=== PATIENT | female | born 1980 | race Two or more races ===

== ENCOUNTER 2025-03-03 10:50 | Outpatient (AMB) | payer MEDICAID, SELFPAY ==
[2025-03-03 11:08] VITALS: BP 134/93; PULSE 71; RESP 17; TEMP 36.6; O2SAT 96; BMI 30.7
--- NOTE | 2025-03-03 11:08 | AMB.OBINITIA ---
Vital Signs 03/03/25 11:08 Height 1.52 m Height Method Measured Weight 71.271 kg Weight Measurement Method Standing Scale BMI 30.7 BP 134/93 H Blood Pressure Source Automatic Cuff Blood Pressure Location Right Upper Arm Position Sitting Respiration 17 Pulse 71 Pulse Source Monitor Temp 97.8 F Temp Source Temporal Artery Scan Pulse Oximetry (%) 96 Oxygen Delivery Method Room Air Allergies/Home Meds Allergies & Medications Allergies No Known Allergies Allergy (Verified 03/03/25 11:09) Intake Visit Data Collection New Patient or Established: Established Patient (seen at [facility] within 3 years) Reason for Visit:: OBI Consent obtained for Telemed Visit: No Seen by Clinical Staff ONLY (RN/MA): No Retread Operator Required: No Do You Feel Safe at Home: Yes Authorities Contacted: N/A PCP or OBGYN visit in last 3 months: No Hx Now: Yes Are you currently on any form of Control: No Last menstrual period: 12/25/24 Pain Present Currently: No Pain Scale Used: Calvillo-Jennings/Numerical Pain scale:: 0 Smoking Status Smoking Status: Never smoker Questionnaires Covid-19 Vaccine Questionnaire Has patient been vacinated for Covid-19 Have you been vacinated for Covid-19: No PHQ-9 PHQ-2 Over the last 2 weeks, how often have you been bothered by any of the following problems? 1. Little interest or pleasure in doing things: not at all 2. Feeling down, depressed, or hopeless: not at all Total score: 0 PHQ-9 3. Trouble falling or staying asleep, or sleeping too much: Not at all 4. Feeling tired or having little energy: Not at all 5. Poor appetite or overeating: Not at all 6. Feeling bad about yourself - or that you are a failure or have let yourself or your family down: Not at all 7. Trouble concentrating on things, such as reading the newspaper or watching television: Not at all 8. Moving or speaking so slowly that other people could have noticed? - Or the opposite - being so fidgety or restless that you have been moving around a lot more than usual: not at all 9. Thoughts that you would be better off or of hurting yourself in some way: Not at all Total score: 0 If you checked off any problems, how difficult have these problems made it for you to do your work, take care of things at home, or get along with other people?: not difficult at all Source: Developed by Drs. Samir Jimenes, Trena Lowe, Francis Jones and colleagues, with an educational jatinder from [employer]. Social History Living Situation History Housing: House Tobacco History Smoking Status: Never smoker Alcohol History Alcohol Intake: Never Domestic Abuse History Do You Feel Safe at Home: Yes History of Present Illness HPI Narrative 44 yo for OBI. happy with + preg test and . unplanned. no bleeding or s/s of miscarriage. lmp 12/25/24. EDC 10/03/24. sure dates. no PMH,no social habit. no surgery. HX of gestational hypertention last . patient and spouse are with this [employer]: Past Medical History Past Medical History: No Hx Neurological Disorders, No Hx Cardiac Disorders, No Hx Cancer, No Hx Blood Disorders, Yes Hx Anemia (Iron infusion weekly for 6wks), No Hx Gastrointestinal Disorders, No Hx Renal Disease, No Hx Diabetes Mellitus Type 1 and No Hx Diabetes Mellitus Type 2 OB Initial Visit OB Flowsheet OB Flowsheet Initial Weight: Not Recorded Date <del>?</del> EGA Weight BP Alb Glu CTX Pres Fundal ht FHR Mov Dilation Station Effacement Hx Notes Visit Note 03/03/25 <del>?</del> 9w 5d 71.271 kg 134/93 absent unknown 6 0 absent 44-year-old 8 para 5 for OBI. Patient has an unplanned . Her last period December 25, 2024. Estimated due date October 03, 2025. Patient denies any complaints of nausea and vomiting. She denies any bleeding leaking or cramping. She has had 2 prior SABs. Reports sure dates. Her last period December 25, 2024 and this would give a due date of October 03, 2025. review chart and dates. OFFice sono /vag probe by Dr Lewis, shows pole, no cardiac motion. Today OB sono ordered at [facility], OB panel and HCG x2 were ordered at [facility]. discuss sab precaution. and ER precaution, rtc 1 week with OB for f/u Menstrual History Menstrual reliability: approximate (month known) Flow: normal Menstrual regularity: irregular Monthly: No Age at menarche: 16 On control pills at conception: Yes Date of positive home test: 01/31/25 OB History : 8 Para: 5 Hx # Pregnancies: 0 Hx Total # of Abortions (Spontaneous & Elective): 2 # of Living Children: 5 Delivery History 1st : Child's name: SUNI date: 10/19/99 sex: female Gestational age at delivery (weeks): 40 Delivery type: vaginal weight (lbs): 2721.554 g History of depression before or after : No 2nd : Child's name: RISHI date: 10/26/01 sex: female Gestational age at delivery (weeks): 40 Delivery type: vaginal weight (lbs): 2721.554 g History of depression before or after : No 3rd : Child's name: ABBY date: 10/05/05 sex: female Gestational age at delivery (weeks): 40 Delivery type: vaginal weight (lbs): 2721.554 g History of depression before or after : No 4th : Child's name: ALEE date: 05/12/11 sex: female Gestational age at delivery (weeks): 40 Delivery type: vaginal weight (lbs): 2721.554 g History of depression before or after : No 5th : Child's name: JORDAN date: 11/18/18 sex: female Gestational age at delivery (weeks): 40 Delivery type: vaginal weight (lbs): 3175.147 g History of depression before or after : No Infection History & Risk Evaluation History of STDs: none HIV risk evaluation: low risk Hepatitis B risk evaluation: low risk Patient or partner has history of Genital Herpes: No Genetic Screening & History Genetic Screening/Teratology Counseling - Includes patient, baby's father, or anyone in either family with: 1. Patient's age 35 years or older as of estimated date of delivery: Yes 2. Thalassemia (Slovenian, Ukrainian, Mediterranean, or Background); MCV less than 80: No 3. Neural Tube Defect (Meningomyelocele, Spina Bifida, or Anencephaly): No 4. Congenital Heart Defect: No 5. Down Syndrome: No 6. Ron-Sachs (Ashkenazi Episcopalian, Cajun, Irish [place]): No 7. Nathalie Disease (Ashkenazi Episcopalian): No 8. Familial Dysautonomia (Ashkenazi Episcopalian): No 9. Sickle Cell Disease or Trait (): No 10. Hemophilia or other blood disorders: No 11. Muscular Dystrophy: No 12. Cystic Fibrosis: No 13. [place]'s Chorea: No 14. Mental Retardation/Autism: No 15. Other inherited genetic or chromosomal disorder: No 16. Maternal Metabolic Disorder (EG,TYPE 1 Diabetes, PKU): No 17. Patient or baby's father had a child with defects not listed above: No 18. Recurrent loss or a stillbirth: No 19. Medications (including supplements, vitamins, herbs or otc drugs)/illicit/recreational drugs/alcohol since last menstrual period: No 20. Any other: No Infection History 1. Live with someone with TB or exposed to TB: No 2. Rash or viral illness since last menstrual period: No 3. Hepatitis B,C: No Other (see comments) Source: [employer] Review of Systems Review of Systems Systems Reviewed: All systems reviewed, normal except as documented Exam General Limitations: no limitations General Appearance: alert, in no apparent distress, comfortable, cooperative, healthy appearing, well developed and well groomed Head Head exam: atraumatic, normocephalic and normal inspection Neck Neck exam: Present normal inspection, full ROM and trachea midline Chest Chest inspection: Present normal inspection and symmetric chest wall rise Resp Respiratory exam: Present normal lung sounds bilaterally Psych Psychiatric exam: Present normal affect and normal mood Office Procedures OB Clinic LOC & Office Proc's Nursing/Assessment Patient Status: Established Patient OB Clinic Nursing Assessment: Medication Reconciliation, Update PMH in EMR and Vital Signs OB Clinic Coordination of Care: Complex Care and Chronic Disease 1-5, Consent,records obtained, informed consent, Education Simp Pt/Fam and 4+ Authorizations needed Special Needs: Heart tones Established Patient Charge Established Patient Point Assignment: 130 Established Patient Point Charge: EP Level 4 (120-155) Assessment & Plan Diagnosis / Problem List (1) Encounter for supervision of high risk in first trimester, antepartum: Status: Acute (2) Threatened affecting intrauterine : Status: Acute (3) Advanced maternal age (AMA) in : Status: Acute Plan ob sono and HG with type and RH today, repeat HCG in 5 days, discuss ER precaution and parameters. RTC 1 week f/y with OB Additional Plan Follow Up: 1 Week (f/u sab)
== END 2025-03-03 11:54 | disposition home or self-care (01) ==
LOC: HODSOBC 10:50
PROVIDERS: PCP Family Medicine; Referring Provider Family Medicine; Supervising Provider Advanced Practice Midwife; Visit Provider Advanced Practice Midwife
DX: O20.0 Threatened abortion (principal); Z3A.09 9 weeks gestation of pregnancy
CPT/HCPCS: 99214; G0463

== ENCOUNTER 2025-03-10 10:49 | Outpatient (AMB) | payer MEDICAID, SELFPAY ==
[2025-03-10 10:58] VITALS: BP 164/89; PULSE 85; RESP 17; TEMP 36.7; O2SAT 97; BMI 31.2
--- NOTE | 2025-03-10 10:58 | AMB.OBVISIT ---
Vital Signs 03/10/25 10:58 Height 1.52 m Height Method Measured Weight 72.178 kg Weight Measurement Method Standing Scale BMI 31.2 BP 164/89 H Blood Pressure Source Automatic Cuff Blood Pressure Location Right Upper Arm Position Sitting Respiration 17 Pulse 85 Pulse Source Monitor Temp 98.1 F Temp Source Temporal Artery Scan Pulse Oximetry (%) 97 Oxygen Delivery Method Room Air Allergies/Home Meds Allergies & Medications Allergies No Known Allergies Allergy (Verified 03/10/25 10:58) Medication Reconciliation No Known Home Medications 03/10/25 [History Confirmed 03/10/25] Intake Visit Data Collection New Patient or Established: Established Patient (seen at [facility] within 3 years) Reason for Visit:: OB\LAB RESULTS Consent obtained for Telemed Visit: No Seen by Clinical Staff ONLY (RN/MA): No Head Start Teacher Required: Yes Do You Feel Safe at Home: Yes Authorities Contacted: N/A PCP or OBGYN visit in last 3 months: Yes Date of Last PCP or OBGYN visit: 03/03/25 Hx Now: Yes Are you currently on any form of Control: No Pain Present Currently: No Pain Scale Used: Calvillo-Jennings/Numerical Pain scale:: 0 Smoking Status Smoking Status: Never smoker Questionnaires Covid-19 Vaccine Questionnaire Has patient been vacinated for Covid-19 Have you been vacinated for Covid-19: Yes PHQ-9 PHQ-2 Over the last 2 weeks, how often have you been bothered by any of the following problems? 1. Little interest or pleasure in doing things: not at all PHQ-9 8. Moving or speaking so slowly that other people could have noticed? - Or the opposite - being so fidgety or restless that you have been moving around a lot more than usual: not at all Source: Developed by Drs. Samir Jimenes, Trena Lowe, Francis Jones and colleagues, with an educational jatinder from [employer]. 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 Patient has an unplanned . Her last period December 25, 2024. Estimated due date October 03, 2025. Patient denies any complaints of nausea and vomiting. She denies any bleeding leaking or cramping. She has had 2 prior SABs. Reports sure dates. Her last period December 25, 2024 and this would give a due date of October 03, 2025. review chart and dates. OFFice sono /vag probe by Dr Lewis, shows pole, no cardiac motion. Today [place] ordered [place] [facility], OB panel and HCG x2 were ordered at [facility] [place]. discuss sab precaution. and ER precaution, rtc 1 week with OB for f/u 03/10/25 <del>?</del> 10w 5d 72.178 kg 164/89 absent unknown 6 0 no c/c vaginal bleding. No discomforts. Patient got lab work done on the . She was confused as to what she was supposed to do. Ultrasound is still pending. hCG is 8054. Patient reminded to get her second hCG on Monday. Staff is working on getting pelvic ultrasound done to confirm demise. Reviewed SAB precautions with patient increase fluids and. ER precautions given and return in a week after ultrasound with OB for results and management CASSY Calculator Estimated Delivery Date Method Current WG Current Estimate 10/01/25 LMP (Certain) 10w 5d Office Procedures OB Clinic LOC & Office Proc's Nursing/Assessment Patient Status: Established Patient OB Clinic Nursing Assessment: Medication Reconciliation OB Clinic Coordination of Care: Complex Care and Chronic Disease 1-5, Consent,records obtained, informed consent, Education Simp Pt/Fam and 4+ Authorizations needed Special Needs: Heart tones Established Patient Charge Established Patient Point Assignment: 105 Established Patient Point Charge: EP Level 3 (80-115) Assessment & Plan Diagnosis / Problem List (1) Threatened affecting intrauterine : Status: Acute (2) Advanced maternal age (AMA) in : Status: Acute Plan hCG on Monday. Get pelvic sono ordered. Discussed SAB precautions and ER precautions. Rest increase fluids. Follow-up with OB after sono and labs for results and management Additional Plan Follow Up: 1 Week (f/u labs)
== END 2025-03-10 11:59 | disposition home or self-care (01) ==
PROVIDERS: Supervising Provider Advanced Practice Midwife; Visit Provider Advanced Practice Midwife
DX: O09.521 Supervision of elderly multigravida, first trimester (principal); O20.0 Threatened abortion; O09.41 Supervision of pregnancy with grand multiparity, first trimester; Z3A.10 10 weeks gestation of pregnancy
CPT/HCPCS: 99213; G0463

== ENCOUNTER → 2025-03-12 | Outpatient (CLI) | payer MEDICAID, SELFPAY ==
--- NOTE | 2025-03-12 17:10 | XR_ITS ---
Examination: Complete OB ultrasound, less than 14 weeks, transabdominal Date and time of exam: March 12, 2021 1524 hours INDICATIONS: Diagnosis advanced maternal age, history of demise Technique: Obstetrical ultrasound images less than 14 weeks performed via transabdominal imaging Findings: Uterus 7.7 cm, retained products of conception in the endometrium 2.8 x 1.3 x 2.0 cm No intrauterine gestation Right ovary 2.9 cm arterial flow Left ovary obscured by bowel gas IMPRESSION: Findings most consistent with retained products of conception
== END | disposition home or self-care (01) ==
PROVIDERS: PCP Family Medicine; Referring Provider Advanced Practice Midwife; Visit Provider Advanced Practice Midwife
DX: O02.1 Missed abortion (principal)
CPT/HCPCS: 76801

== ENCOUNTER 2025-03-19 13:22 | Outpatient (AMB) | payer MEDICAID, SELFPAY ==
--- NOTE | 2025-03-19 13:47 | AMB.OBVISIT ---
Vital Signs 03/19/25 13:50 Height 1.52 m Height Method Stated Weight 71.271 kg Weight Measurement Method Standing Scale BMI 30.8 BP 135/84 H Blood Pressure Source Automatic Cuff Blood Pressure Location Right Upper Arm Position Sitting Respiration 17 Pulse 63 Pulse Source Monitor Temp 98.0 F Temp Source Temporal Artery Scan Pulse Oximetry (%) 96 Oxygen Delivery Method Room Air Allergies/Home Meds Allergies & Medications Allergies No Known Allergies Allergy (Verified 03/19/25 13:51) Medication Reconciliation misoprostol 200 mcg tablet (Cytotec) 200 mcg PO QAM AND QHS #2 tabs 03/19/25 [Rx] Intake Visit Data Collection New Patient or Established: Established Patient (seen at [facility] within 3 years) Reason for Visit:: OBC (HCG RESULTS) Seen by Clinical Staff ONLY (RN/MA): No Head Of English Required: Yes Head Of English's name/title: JESENIA MALAGON Do You Feel Safe at Home: Yes Authorities Contacted: N/A PCP or OBGYN visit in last 3 months: Yes Date of Last PCP or OBGYN visit: 03/10/25 Hx Now: Yes Are you currently on any form of Control: No Pain Present Currently: No Pain Scale Used: Calvillo-Jennings/Numerical Pain scale:: 0 Smoking Status Smoking Status: Never smoker Questionnaires Covid-19 Vaccine Questionnaire Has patient been vacinated for Covid-19 Have you been vacinated for Covid-19: No PHQ-9 PHQ-2 Over the last 2 weeks, how often have you been bothered by any of the following problems? 1. Little interest or pleasure in doing things: not at all 2. Feeling down, depressed, or hopeless: not at all Total score: 0 PHQ-9 3. Trouble falling or staying asleep, or sleeping too much: Not at all 4. Feeling tired or having little energy: Not at all 5. Poor appetite or overeating: Not at all 6. Feeling bad about yourself - or that you are a failure or have let yourself or your family down: Not at all 7. Trouble concentrating on things, such as reading the newspaper or watching television: Not at all 8. Moving or speaking so slowly that other people could have noticed? - Or the opposite - being so fidgety or restless that you have been moving around a lot more than usual: not at all 9. Thoughts that you would be better off or of hurting yourself in some way: Not at all Total score: 0 If you checked off any problems, how difficult have these problems made it for you to do your work, take care of things at home, or get along with other people?: not difficult at all Source: Developed by Drs. Samir Jimenes, Trena Lowe, Francis Jones and colleagues, with an educational jatinder from [employer]. 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 Trish Pérez was seen the patient. Last visit I performed an ultrasound in the office for Trish revealing an intrauterine with no cardiac activity. Patient had a follow-up ultrasound. 03/12/2025 revealing retained products of conception measuring 2 cm. She has not had an ultrasound in a week. She is Polish-speaking only and the entire physical exam and interview was conducted with Jesenia the medical record coder. Her quantitative hCG about a week ago was 2200. The one prior was about 8000. The patient's had 2 previous miscarriages. She prefers to use medical treatment in the form of Cytotec rather than have a D&C if she continues to have retained products. She denies fevers chills heavy vaginal bleeding or foul discharge. Care OB Visit Log OB Flowsheet Initial Weight: Not Recorded Date <del>?</del> EGA Weight BP Alb Glu CTX Pres Fundal ht FHR Mov Dilation Station Effacement Hx Notes Visit Note 03/03/25 <del>?</del> 9w 5d 71.271 kg 134/93 absent unknown 6 0 absent 44-year-old 8 para 5 for OBI. Patient has an unplanned . Her last period December 25, 2024. Estimated due date October 03, 2025. Patient denies any complaints of nausea and vomiting. She denies any bleeding leaking or cramping. She has had 2 prior SABs. Reports sure dates. Her last period December 25, 2024 and this would give a due date of October 03, 2025. review chart and dates. OFFice sono /vag probe by Dr Lewis, shows pole, no cardiac motion. Today OB sono ordered at [facility] [place], OB panel and HCG x2 were ordered at [facility]. discuss sab precaution. and ER precaution, rtc 1 week with OB for f/u 03/10/25 <del>?</del> 10w 5d 72.178 kg 164/89 absent unknown 6 0 no c/c vaginal bleding. No discomforts. Patient got lab work done on the . She was confused as to what she was supposed to do. Ultrasound is still pending. hCG is 8054. Patient reminded to get her second hCG on Monday. Staff is working on getting pelvic ultrasound done to confirm demise. Reviewed SAB precautions with patient increase fluids and. ER precautions given and return in a week after ultrasound with OB for results and management 03/19/25 <del>?</del> 12w 0d 71.271 kg 135/84 0 Patient's had some bleeding but no cramping fevers or chills. She is unsure whether she passed the tissue. Last ultrasound was a week ago revealing 2 cm of retained products. CASSY Calculator Estimated Delivery Date Method Current WG Current Estimate 10/01/25 LMP (Certain) 12w 0d Notes Visit Date: 03/19/25 Last Updated by: Kimberlyn Lewis (OB Clinic)MD Due to patient's insurance, we have to authorize for another repeat ultrasound. Once we get the results back I offered the patient oral Cytotec which she accepted cytotec in order to complete the miscarriage. I warned the patient she might have more bleeding and cramping. I recommended ibuprofen for her pain. If she has severe heavy bleeding or pain she needs to come to the ER at which point we might have to perform a dilation and curettage Office Procedures OB Clinic LOC & Office Proc's Nursing/Assessment Patient Status: Established Patient OB Clinic Nursing Assessment: Medication Reconciliation, Update PMH in EMR and Vital Signs OB Clinic Coordination of Care: Complex Care and Chronic Disease 1-5, Consent,records obtained, informed consent, Education Simp Pt/Fam, Results/Orders obtained and Staff clarify orders Special Needs: Heart tones Established Patient Charge Established Patient Point Assignment: 120 Established Patient Point Charge: EP Level 4 (120-155) Assessment & Plan Diagnosis / Problem List (1) Advanced maternal age (AMA) in : Status: Acute (2) Missed : Status: Acute Assessment and Plan: Repeat another ultrasound. If patient still has retained products, oral Cytotec was prescribed.
[2025-03-19 13:50] VITALS: BP 135/84; PULSE 63; RESP 17; TEMP 36.7; O2SAT 96; BMI 30.8
== END 2025-03-19 14:30 | disposition home or self-care (01) ==
LOC: HODSOBC 13:22
PROVIDERS: Supervising Provider Obstetrics & Gynecology; Visit Provider Obstetrics & Gynecology
DX: O02.1 Missed abortion (principal)
CPT/HCPCS: 99214; G0463

== ENCOUNTER 2025-05-07 10:58 | Outpatient (AMB) | payer MEDICAID, SELFPAY ==
[2025-05-07 11:10] VITALS: BP 147/95; PULSE 71; RESP 18; TEMP 36.6; O2SAT 96; BMI 31.0
--- NOTE | 2025-05-07 11:10 | AMB.GYNCLNOT ---
Vital Signs 05/07/25 11:10 Height 1.52 m Height Method Stated Weight 71.724 kg Weight Measurement Method Standing Scale BMI 31.0 BP 147/95 H Blood Pressure Source Automatic Cuff Blood Pressure Location Right Upper Arm Position Sitting Respiration 18 Pulse 71 Pulse Source Monitor Temp 97.8 F Temp Source Temporal Artery Scan Pulse Oximetry (%) 96 Oxygen Delivery Method Room Air Allergies/Home Meds Allergies & Medications Allergies No Known Allergies Allergy (Verified 03/19/25 13:51) Intake Visit Data Collection New Patient or Established: Established Patient (seen at [facility] within 3 years) Reason for Visit:: DISCUSS OCP Human Services Professional Required: Yes Human Services Professional's name/title: GIL MALAGON Do You Feel Safe at Home: Yes Authorities Contacted: N/A PCP or OBGYN visit in last 3 months: Yes Date of Last PCP or OBGYN visit: 03/19/25 Hx Now: No Are you currently on any form of Control: No Pain Present Currently: No Smoking Status Smoking Status: Never smoker Hydrotherapist history Hydrotherapist History Menstrual regularity: irregular Monthly: No Menopausal: No [employer]: Past Medical History Past Medical History: No Hx Neurological Disorders, No Hx Cardiac Disorders, No Hx Cancer, No Hx Blood Disorders, Yes Hx Anemia (Iron infusion weekly for 6wks), No Hx Gastrointestinal Disorders, No Hx Renal Disease, No Hx Diabetes Mellitus Type 1 and No Hx Diabetes Mellitus Type 2 Questionnaires PHQ-9 PHQ-2 Over the last 2 weeks, how often have you been bothered by any of the following problems? 1. Little interest or pleasure in doing things: not at all PHQ-9 8. Moving or speaking so slowly that other people could have noticed? - Or the opposite - being so fidgety or restless that you have been moving around a lot more than usual: not at all Source: Developed by Drs. Samir Jimenes, rTena Lowe, Francis Jones and colleagues, with an educational jatinder from [employer]. Social History Living Situation History Lives With: Family Housing: House Tobacco History Smoking Status: Never smoker Second Hand Smoke Exposure: No Alcohol History Alcohol Intake: Never Domestic Abuse History Do You Feel Safe at Home: Yes History of Present Illness HPI Narrative 45-year-old 8 para 5 for control start. Patient just had and SAB April 07, 2025. Patient was given [employer] the past retained products. She has not started her period yet her last episode of sex was a week ago with a condom. Patient denies existence of any surgeries. Denies social habits. Denies chronic illnesses like high blood pressure and diabetes. Review of Systems Review of Systems Systems Reviewed: All systems reviewed, normal except as documented Exam General Limitations: no limitations General Appearance: alert, in no apparent distress, comfortable, cooperative, healthy appearing, well developed and well groomed Head Head exam: atraumatic, normocephalic and normal inspection ENT ENT exam: Present normal exam, normal oropharynx and mucous membranes moist Chest Chest inspection: Present normal inspection and symmetric chest wall rise Resp Respiratory exam: Present normal lung sounds bilaterally Card Cardiovascular exam: Present regular rate, normal rhythm and normal heart sounds Abdominal Abdominal exam: Present soft and normal bowel sounds Psych Psychiatric exam: Present normal affect and normal mood Results Objective Laboratory: test negative Office Procedures [facility] Clinic LOC & Office Proc's Nursing/Assessment Patient Status: Established Patient OB Clinic Nursing Assessment: Medication Reconciliation, Update PMH in EMR and Vital Signs OB Clinic Coordination of Care: Complex Care and Chronic Disease 1-5, Education Complex Pt/Fam and Consent,records obtained, informed consent Established Patient Charge Established Patient Point Assignment: 80 Established Patient Point Charge: EP Level 3 (80-115) Assessment & Plan Diagnosis / Problem List (1) control counseling: Status: Acute (2) Family planning, BCP ( control pills) maintenance: Status: Acute Plan Krystal x 12 cycles. Start today. Reviewed method with patient. I reviewed compliance. Condoms for 2 weeks. Discussed ACHES. Okay I advised patient to make an appointment with her family practice doctor for elevated blood pressure. Take a multivitamin daily. Discussed diet and exercise. And return in 6 months for follow-up Additional Plan Follow Up: 6 Months (obc)
== END 2025-05-07 11:59 | disposition home or self-care (01) ==
LOC: HODSOBC 10:58
PROVIDERS: Supervising Provider Advanced Practice Midwife; Visit Provider Advanced Practice Midwife
DX: Z30.011 Encounter for initial prescription of contraceptive pills (principal)
CPT/HCPCS: 99213; G0463

== ENCOUNTER → 2025-05-15 | Outpatient (CLI) | payer MEDICAID, SELFPAY ==
--- NOTE | 2025-05-15 09:53 | XR_ITS ---
Examination: Tibia-Fibula, right , 2 views Technique: Tibia-fibula AP lateral 2 views Date and time of exam: May 15, 2025 0958 hours INDICATIONS: Patient fell 6 days ago with injury to the lower leg, lower leg pain. FINDINGS: Acute fracture distal fibula without significant displacement Tibia appears intact IMPRESSION: Acute fracture distal fibula near the fibular tip
--- NOTE | 2025-05-15 09:53 | XR_ITS ---
EXAMINATION: Ankle, right 3 views . Technique: Ankle AP, oblique, lateral 3 views Date and time of exam: May 15, 2025, 0958 hours INDICATIONS: Patient fell 6 days ago with injury to the ankle, ankle pain. FINDINGS: Acute fractures fibular tip without significant displacement No ankle dislocation IMPRESSION: Acute fractures fibular tip
--- NOTE | 2025-05-15 09:53 | XR_ITS ---
Examination: Foot, right, 3 views Technique: AP, oblique, lateral views foot, 3 views Date and time of exam: May 15, 2025, 0958 hours INDICATIONS: Patient fell 6 days ago with injury to the foot, foot pain. FINDINGS: No acute foot fracture Fracture distal fibula due to the fibular tip without significant displacement IMPRESSION: Fracture distal fibula near fibular tip without significant displacement
== END | disposition home or self-care (01) ==
LOC: CDIM 09:10
DX: S82.401A Unspecified fracture of shaft of right fibula, initial encounter for closed fracture (principal); W19.XXXA Unspecified fall, initial encounter
CPT/HCPCS: 73590; 73610; 73630